=== PATIENT | male | born 1965 | race Caucasian/White ===

== ENCOUNTER 2017-10-31 23:58 | Emergency (ER) | payer OTHER ==
[~2017-10-31] VITALS: Ht 190.5 cm; Wt 75.0 kg
[2017-11-01] MEDS ORDERED: DIPH,PERTUSS(ACELL),TET VAC/PF 0.5 ML IM-VACC ONE ×2 (00:30→00:46)
[2017-11-01] MEDS ORDERED: LIDOCAINE-MPF 1%, 5ML INFIL ONE (00:30)
[2017-11-01] MEDS ORDERED: LIDOCAINE 1%-EPI 1:100K, 30ML ONE (00:46)
[2017-11-01] MEDS ORDERED: LIDOCAINE-MPF 1%, 2ML ONE ×2 (00:56→00:58)
[2017-11-01] MEDS ORDERED: BACITRACIN ZINC OINT 500U/GM, 0.9 GM ONE (01:36)
[2017-11-01 02:26] VITALS: BP 121/68
== END 2017-11-01 02:28 | disposition home or self-care (01) ==
LOC: ED 11-01 02:22
DX: S91.312A Laceration without foreign body, left foot, initial encounter (principal); W01.198A Fall on same level from slipping, tripping and stumbling with subsequent striking against other object, initial encounter; Y93.89 Activity, other specified; Y99.8 Other external cause status; Y92.009 Unspecified place in unspecified non-institutional (private) residence as the place of occurrence of the external cause
CPT/HCPCS: 12042; 90471; 90715